=== PATIENT | male | born 1965 | race Caucasian/White ===

== ENCOUNTER → 2016-07-11 | Outpatient (CLI) | payer OTHER | LOC: MRI 08:59 | DX: R10.13 Epigastric pain (principal); Q45.3 Other congenital malformations of pancreas and pancreatic duct ==

== ENCOUNTER → 2016-10-04 | Outpatient (CLI) | payer OTHER | LOC: MRI 09:00 | DX: R10.13 Epigastric pain (principal); K86.9 Disease of pancreas, unspecified; R59.0 Localized enlarged lymph nodes | CPT/HCPCS: 74181 ==

== ENCOUNTER → 2020-05-31 | Outpatient (CLI) | payer OTHER ==
[~2020-05-31] MED LIST: BUSPIRONE HCL7.5 MG PO; COZAAR100 MG PO; CRESTOR20 MG PO; ECOTRIN81 MG PO; EPIPEN 2-P0.3 MG/0.3 SC; FLONASE 0.05% N16 GM; LEVOCETIRIZINE D5 MG PO; NITROGLYCERIN0.4 MG SL; SPIRIVA RESPIMAT4 GM INH; TAMSULOSIN HCL0.4 MG PO; VENTOLIN HFA 66.7 GM INH; WIXELA 250-501 EACH INH; ZETIA10 MG PO
== END ==
LOC: CT 08:11
DX: I71.2 Thoracic aortic aneurysm, without rupture (principal)
CPT/HCPCS: 71275; 82565; Q9967

== ENCOUNTER → 2021-07-21 | Outpatient (CLI) | payer OTHER | LOC: CT 10:19 | DX: I71.2 Thoracic aortic aneurysm, without rupture (principal) | CPT/HCPCS: 36415; 71275; 82565; 84520; Q9967 ==

== ENCOUNTER → 2021-07-26 | Outpatient (CLI) | payer OTHER | LOC: HEART 5 14:51 | DX: R00.0 Tachycardia, unspecified (principal) ==